=== PATIENT | female | born 1985 | race African-American/Black ===

== ENCOUNTER 2021-03-30 20:09 | Emergency (ER) | payer SELFPAY ==
[~2021-03-30] VITALS: Ht 167.6 cm; Wt 79.0 kg
[2021-03-30] MEDS ORDERED: ALBUTEROL (0.083%) 2.5MG/3ML NEB HHN STA (20:27)
[2021-03-30] MEDS ORDERED: METHYLPREDNISOLONE SOD SUCC 125 MG/2 ML VIAL IV STA (20:27)
[2021-03-30] MEDS ORDERED: IPRATROPIUM BROMIDE (0.02%) 0.5MG/2.5ML NEB HHN STA (20:27)
[2021-03-31] MEDS ORDERED: P20 MT (00:07)
[2021-03-31 00:30] VITALS: BP 136/81
== END 2021-03-31 00:52 | disposition home or self-care (01) ==
LOC: ER 20:09
DX: J45.901 Unspecified asthma with (acute) exacerbation (principal)
CPT/HCPCS: 71045; 81025; 93005; 94640; 96374; 99283; J2930; Z7610